=== PATIENT | male | born 1995 | race American Indian/Alaskan Native ===

== ENCOUNTER 2017-04-13 17:32 | Emergency (ER) | payer SELFPAY ==
[2017-04-13 17:46] VITALS: BP 116/72
== END 2017-04-13 21:30 | disposition left against medical advice (07) ==
LOC: ED 17:32
DX: J11.1 Influenza due to unidentified influenza virus with other respiratory manifestations (principal); Z53.21 Procedure and treatment not carried out due to patient leaving prior to being seen by health care provider

== ENCOUNTER 2020-01-19 10:10 | Emergency (ER) | payer SELFPAY | END 2020-01-19 10:32 | disposition left against medical advice (07) | LOC: ED 10:10 | DX: R56.9 Unspecified convulsions (principal); Z53.21 Procedure and treatment not carried out due to patient leaving prior to being seen by health care provider ==